=== PATIENT | female | born 1990 | race African-American/Black ===

== ENCOUNTER 2020-02-09 22:18 | Emergency (ER) | payer BC ==
[~2020-02-09] VITALS: Ht 165.1 cm; Wt 54.5 kg
[2020-02-10 00:17] VITALS: BP 110/65
== END 2020-02-10 00:22 | disposition home or self-care (01) ==
LOC: EMS 22:23
DX: R05 Cough (principal); R09.81 Nasal congestion; R07.89 Other chest pain